=== PATIENT | female | born 1950 | race Caucasian/White ===

== ENCOUNTER → 2023-09-22 | Outpatient (CLI) | payer MEDICARE | LOC: RAD 12:36 | DX: R05.3 Chronic cough (principal) ==

== ENCOUNTER → 2024-06-29 | Outpatient (CLI) | payer MEDICARE ==
[~2024-06-29] MED LIST: Gadoterate 20 ML VIAL IV ONE
== END ==
LOC: RAD 10:01
DX: R42 Dizziness and giddiness (principal)
CPT/HCPCS: A9575